=== PATIENT | male | born 1980 | race Caucasian/White ===

== ENCOUNTER 2019-09-02 19:16 | Emergency (ER) | payer OTHER ==
[~2019-09-02] VITALS: Ht 190.5 cm; Wt 83.9 kg
[2019-09-02 19:27] VITALS: BP 129/89
--- NOTE | 2019-09-02 19:37 | NUR ---
ED Nurse Note: PT CAME IN DUE TO RIGHT PINKY FINGER PAIN X 1 WEEK. REPORTS THAT HE HAD ACRUSH INJURY ON HIS RIGHT HAND AND FELT THAT HIS RIGHT PINKY KNUCKLE POPPED. AAO X4 AND AMBULATORY.
--- NOTE | 2019-09-02 20:08 | Emergency Room Report ---
History of Present Illness General Chief Complaint: Upper Extremity Injury Source: Patient Present Illness HPI 39-year-old male presents to the emergency department complaining of 9 out of 10 severity increased pain to the right fifth digit after feeling a pop when adjusting his belt buckle approximately 3 hours ago. Patient reports he just sustained a crush injury to the right hand almost 5 days ago. Patient reports he still has significant swelling and bruising. Patient states that after initial crush injury occurred x-ray imaging did not show any acute fractures. Patient reports moderate increase in pain after feeling a pop in a localized area at the joint of his right fifth digit. Denies any additional trauma or or fall at this time. Patient states that he is still taking ibuprofen without relief of his symptoms. He denies paresthesias or loss of gross motor movements. Allergies: Coded Allergies: CORTISONE (Verified Allergy, Unknown, 09/02/19) Patient History Past Medical History: see triage record Past Surgical History: none Pertinent Family History: none Reviewed Nursing Documentation: PMH: Agreed; PSxH: Agreed Nursing Documentation-PMH Past Medical History: No Stated History Review of Systems All Other Systems: negative except mentioned in HPI Physical Exam Vital Signs Date Time Temp Pulse Resp B/P (MAP) Pulse Ox O2 Delivery O2 Flow Rate FiO2 09/02/19 19:27 98.1 62 18 129/89 97 Room Air Medical Decision Making PA Attestation Dr. Bhatti is my supervising Physician whom patient management has been discussed with. Diagnostic Impression: Primary Impression: Finger fracture, right Qualified Codes: S62.626A - Displaced fracture of middle phalanx of right little finger, initial encounter for closed fracture ER Course 39-year-old male presents to the emergency department complaining of 9 out of 10 severity increased pain to the right fifth digit after feeling a pop when adjusting his belt buckle approximately 3 hours ago. Patient reports he just sustained a crush injury to the right hand almost 5 days ago. Patient reports he still has significant swelling and bruising. Patient states that after initial crush injury occurred x-ray imaging did not show any acute fractures. Patient reports moderate increase in pain after feeling a pop in a localized area at the joint of his right fifth digit. Denies any additional trauma or or fall at this time. Patient states that he is still taking ibuprofen without relief of his symptoms. He denies paresthesias or loss of gross motor movements. Ddx considered but are not limited to Fracture, dislocation, contusion, Sprain/ Strain/Spasm, Neoplastic mets, ligamental injury just to name a few. Vital signs: are WNL, pt. is afebrile H&PE are most consistent with musculoskeletal injury will perform imaging to r/ o fractures/dislocations. ORDERS: - X-ray Right Hand 3 views -" Oblique fracture of the fifthmiddle phalanx with intra-articular extension into the PIP joint " per official radiology report- Please see report for specific details. ED INTERVENTIONS: -Right 5th digit long finger splint applied by bench technician. Pt. remains neurovascularly intact. D/w pt. will require surgical intervention with orthopedic hand specialist follow up. DISCHARGE: At this time pt. is stable for d/c to home. Will provide printed patient care instructions, and any necessary prescriptions. Care plan and follow up instructions have been discussed with the patient prior to discharge. Last Vital Signs Date Time Temp Pulse Resp B/P (MAP) Pulse Ox O2 Delivery O2 Flow Rate FiO2 09/02/19 19:27 98.1 62 18 129/89 (102) 97 Room Air Status: improved Disposition: HOME, SELF-CARE Condition: Stable Scripts Hydrocodone Bit/Acetaminophen 5-325* (NORCO 5-325*) 1 Each Tablet 1 TAB ORAL Q6H PRN for For Pain, #15 TAB 0 Refills Prov: Adali Reza 09/02/19 Referrals: Orthopedic Urgent Care Patient Instructions: Finger Fracture, [id number] Additional Instructions: Take medications as directed. Follow up with an DIAGNOSTICS TECH in 3-5 days, even if your symptoms have resolved. If symptoms persist MRI may be required at the discretion of your PCP or Ortho Specialist. --Please review list of primary care clinics, if you do not already have a primary care provider who can give you an Orthopedic Referral. Return sooner to ED if new symptoms occur, or current symptoms become worse. Do not drink alcohol, drive, or operate heavy machinery while taking [place] as this may cause drowsiness. - Please note that this Emergency Department Report was dictated using [employer] technology software, occasionally this can lead to erroneous entry secondary to interpretation by the dictation equipment. Adali Reza Sep 02, 2019 20:08
[2019-09-02] MEDS ORDERED: NORCO 5-325 TA1 EACH ORAL (20:14)
--- NOTE | 2019-09-02 20:14 | Diagnostic Imaging Report ---
EXAM: XR Right Hand Complete, 3 or More Views CLINICAL HISTORY: PAIN TECHNIQUE: Frontal, lateral and oblique views of the right hand. COMPARISON: No relevant prior studies available. FINDINGS: Oblique fracture fifth middle phalanx with intra-articular extension into the PIP joint.
[2019-09-02] MEDS ORDERED: Acetaminophen 500mg (ES) tab ORAL ONE (20:15)
[2019-09-02 20:27] VITALS: BP 122/70
--- NOTE | 2019-09-02 20:27 | NUR ---
ER DISCHARGE NOTE: Patient is cleared to be discharged per PA, pt is aox4, on room air, with stable vital signs. pt was given dc and prescription instructions, pt was able to verbalize understanding, pt id band removed. pt is able to ambulate with steady gait. pt took all belongings.
== END 2019-09-02 20:27 | disposition home or self-care (01) ==
LOC: EMR 20:27
DX: S62.626A Displaced fracture of middle phalanx of right little finger, initial encounter for closed fracture (principal); Z88.8 Allergy status to other drugs, medicaments and biological substances; W23.0XXA Caught, crushed, jammed, or pinched between moving objects, initial encounter; Y92.9 Unspecified place or not applicable
CPT/HCPCS: 29130; 73130; Z7502; 99283